=== PATIENT | female | born 1970 | race Asian ===

== ENCOUNTER → 2016-11-28 | Outpatient (CLI) | payer BC ==
[~2016-11-28] MED LIST: PRENATAL VITAMI1 TA5 PO
== END ==
LOC: MC.RAD 09:10
DX: Z12.31 Encounter for screening mammogram for malignant neoplasm of breast (principal)

== ENCOUNTER → 2017-03-16 | Outpatient (CLI) | payer BC | LOC: COL.RAD 13:30 | DX: N85.2 Hypertrophy of uterus (principal) ==

== ENCOUNTER → 2018-01-02 | Outpatient (CLI) | payer BC | LOC: MC.RAD 10:55 | DX: Z12.31 Encounter for screening mammogram for malignant neoplasm of breast (principal); N64.89 Other specified disorders of breast ==

== ENCOUNTER → 2018-01-09 | Outpatient (CLI) | payer BC | LOC: MC.RAD 13:18 | DX: N64.89 Other specified disorders of breast (principal) | CPT/HCPCS: G0279 ==

== ENCOUNTER → 2019-01-15 | Outpatient (CLI) | payer BC | LOC: MC.RAD 01-14 09:45 | DX: Z12.31 Encounter for screening mammogram for malignant neoplasm of breast (principal) ==

== ENCOUNTER → 2020-01-17 | Outpatient (CLI) | payer BC | LOC: MC.RAD 08:15 | DX: Z12.31 Encounter for screening mammogram for malignant neoplasm of breast (principal) ==

== ENCOUNTER 2021-02-11 09:04 | Outpatient (RCR) | payer OTHER | END 2021-03-12 | disposition home or self-care (01) | LOC: WSOH | DX: S46.011A Strain of muscle(s) and tendon(s) of the rotator cuff of right shoulder, initial encounter (principal); S80.01XA Contusion of right knee, initial encounter; S60.221A Contusion of right hand, initial encounter; S80.02XA Contusion of left knee, initial encounter; S80.211A Abrasion, right knee, initial encounter; W01.0XXA Fall on same level from slipping, tripping and stumbling without subsequent striking against object, initial encounter; M51.36 Other intervertebral disc degeneration, lumbar region; Y99.0 Civilian activity done for income or pay ==

== ENCOUNTER → 2021-03-16 | Outpatient (CLI) | payer BC | LOC: MC.RAD 08:15 | DX: Z12.31 Encounter for screening mammogram for malignant neoplasm of breast (principal) ==

== ENCOUNTER 2021-04-22 10:42 | Outpatient (RCR) | payer OTHER | END 2021-05-10 | disposition home or self-care (01) | LOC: WSOH | DX: S46.011D Strain of muscle(s) and tendon(s) of the rotator cuff of right shoulder, subsequent encounter (principal); S80.01XD Contusion of right knee, subsequent encounter; S60.221D Contusion of right hand, subsequent encounter; S80.02XD Contusion of left knee, subsequent encounter; S80.211D Abrasion, right knee, subsequent encounter; M51.36 Other intervertebral disc degeneration, lumbar region; Y99.0 Civilian activity done for income or pay ==

== ENCOUNTER → 2022-04-26 | Outpatient (CLI) | payer BC | LOC: MC.RAD 04-22 09:15 | DX: Z12.31 Encounter for screening mammogram for malignant neoplasm of breast (principal) ==

== ENCOUNTER → 2023-12-25 | Outpatient (CLI) | payer BC | LOC: MHCPAIN 14:15 | DX: M54.17 Radiculopathy, lumbosacral region (principal); M43.17 Spondylolisthesis, lumbosacral region; M47.817 Spondylosis without myelopathy or radiculopathy, lumbosacral region; M48.061 Spinal stenosis, lumbar region without neurogenic claudication | CPT/HCPCS: G0463 ==